=== PATIENT | female | born 1975 | race Caucasian/White ===

== ENCOUNTER → 2017-10-11 | Outpatient (CLI) | payer MEDICARE, MEDICAID ==
--- NOTE | 2017-10-11 16:42 | WOMENS IMAGING REPORT ---
EXAM DESCRIPTION: BILAT SCREENING MAMMO W/CAD COMPLETED DATE/TIME: 10/11/2017 3:53 pm REASON FOR STUDY: ROUTINE BILATERAL SCREENING;Z12.31 Z12.31 ENCNTR SCREEN MAMMOGRAM FOR MALIGNANT N EOPLASM OF TATUM COMPARISON: 2014 TECHNIQUE: Standard craniocaudal and mediolateral oblique views of each breast recorded using ICEXa l acquisition. LIMITATIONS: None. FINDINGS: No masses, calcifications or architectural distortion. No areas of suspicion. Read with the assistance of CAD. .[facility] - R2 C[employer]ova Version 1.3 .[facility] - R2 Cenova Version 1.3 .[facility] - R2 Cenova Version 2.4 .[facility] [place] C[employer]ova Version 2.4 [facility] - R2 [employer] Equipment Repairer Version 9.2 IMPRESSION: NORMAL MAMMOGRAM. BIRADS 1. BREAST DENSITY: b. There are scattered areas of fibroglandular density. BIRAD: 1 NEGATIVE RECOMMENDATION: ROUTINE SCREENING COMMENT: The patient has been notified of the results by letter per SA requirements. Additional no tification policies are in place for contacting patient with suspicious or incomplete findings. Quality ID #[id number]: The [employer] recommends an annual screening mammogram for women aged 40 years or over. This facility utilizes a reminder system to ensure that all patients receive reminder letters, and/or direct phone calls for appointments. This includes reminders for routine scr eening mammograms, diagnostic mammograms, or other Breast Imaging Interventions when appropriate. Th is patient will be placed in the appropriate reminder system. The [employer] (ACR) has developed recommendations for screening MRI of the breast s in certain patient populations, to be used in conjunction with mammography. Breast MRI surveillanc e may be appropriate for women with more than 20% lifetime risk of developing breast cancer as deter mined by genetic testing, significant family history of the disease, or history of mantle radiation f or Hodgkins Disease. ACR Practice Guidelines 2008. TECHNICAL DOCUMENTATION: FINDING NUMBER: (1) ASSESSMENT: (1) JOB ID: [id number] [employer]- All Rights Reserved Reading location - IP/workstation name: [email or web address]
== END ==
LOC: WI 15:36
PROVIDERS: ATTEND Physician Assistant
DX: Z12.31 Encounter for screening mammogram for malignant neoplasm of breast (principal)
CPT/HCPCS: 77067

== ENCOUNTER 2017-12-16 10:05 | Day surgery (SDC) | payer MEDICARE, MEDICAID ==
[~2017-12-16 10:05] MED LIST: BUPIVACAINE HCL 0.5%/EPI 1:200000 INJ 1.8 ML CARTRIDGE ONE; GLYCOPYRROLATE 1 MG/5 ML SYRINGE ONE; LIDOCAINE 2% INJ-PF (20 MG/ML) 2 ML AMPUL ONE; LIDOCAINE 2%/EPINEPHRINE INJ 1.7 ML CARTRIDGE ONE; SUCCINYLCHOLINE CHLORIDE INJ 200 MG/10 ML VIAL ONE
[2017-12-16] MEDS ORDERED: MIDAZOLAM 2 MG/2 ML INJ ONE (11:07)
[2017-12-16] MEDS ORDERED: DEXMEDETOMIDINE INJ 80 MCG/20 ML VIAL IV ONE (11:07)
[2017-12-16] MEDS ORDERED: FENTANYL CITRATE INJ/PF 100 MCG/2 ML AMPUL ONE ×2 (11:07→14:10)
[2017-12-16] MEDS ORDERED: PROPOFOL INJ 200 MG/20 ML VIAL IV ONE (11:08)
[2017-12-16] MEDS ORDERED: OXYMETAZOLINE HCL 0.05% NASAL SPRAY 15 ML BOTTLE ONE (11:23)
[2017-12-16 11:48] LABS: POTASSIUM 4.3 mmol/L (3.6-5.0)
[2017-12-16] MEDS ORDERED: METHYLPREDNISOLONE INJ 125 MG/2 ML SDV ONE (12:06)
[2017-12-16 12:10] LABS: ANION GAP 12 (5-19); BLOOD UREA NITROGEN 11 mg/dL (7-20); CALCIUM 9.6 mg/dL (8.4-10.2); CARBON DIOXIDE 25 mmol/L (22-30); CHLORIDE 100 mmol/L (98-107); GLUCOSE 125 mg/dL (75-110); SODIUM 137.1 mmol/L (137-145)
[2017-12-16 12:20] LABS: HEMATOCRIT 36.4 % (36.0-47.0); MEAN CORPUSCULAR HEMOGLOBIN 26.8 pg (27.0-33.4); MEAN CORPUSCULAR VOLUME 81 fl (80-97); PLATELET COUNT 314 10^3/uL (150-450); RED BLOOD COUNT 4.48 10^6/uL (3.72-5.28); WHITE BLOOD COUNT 15.2 10^3/uL (4.0-10.5)
[2017-12-16] MEDS ORDERED: AMPICILLIN SOD INJ 1 GM VIAL ONE (12:25)
[2017-12-16] MEDS ORDERED: FENTANYL CITRATE INJ/PF 100 MCG/2 ML AMPUL IV PRN ×3 (13:13)
--- NOTE | 2017-12-16 15:11 | Operative Report ---
Operative Report DATE OF SURGERY: 12/16/17 PREOPERATIVE DIAGNOSIS: Dental caries, impacted wisdom tooth #17 and bilateral mandibular marcia POSTOPERATIVE DIAGNOSIS: Same OPERATION: Surgical removal of teeth numbers 3 through 13 and 17 through 31 with alveoloplasties of all 4 quadrants and removal of bilateral mandibular marcia SURGEON: JULIO CESAR LR ANESTHESIA: GA TISSUE REMOVED OR ALTERED: Teeth and bone which were discarded COMPLICATIONS: None ESTIMATED BLOOD LOSS: 25 mL INTRAOPERATIVE FINDINGS: Grossly decayed teeth, full bony impacted tooth #17 and bilateral mandibular marcia PROCEDURE: The patient was brought into operating room #4 and placed on the operating room table in supine position. General anesthesia was induced via a peripheral IV and continued utilizing nasoendotracheal intubation. The patient was then prepped and draped in the usual fashion for an intraoral procedure. A total of 5 carpules of 2% Lidocaine with 1:100K Epi and 2 carpules of 0.5% Marcaine with 1:200K Epi were delivered to the planned surgical sites via both infiltration and nerve block. The oral cavity and oropharynx were suctioned and a moistened oropharyngeal throat pack was placed. A bite block was used throughout the procedure. Full thickness mucoperisteal flaps were elevated. A buccal hockey stick incision was used on the impacted wisdom tooth lower left. Tooth #17 was sectioned. Ostectomy was completed as needed. Teeth were delivered with elevators and forceps. Alveoloplasties were completed using rongeurs and bone files. The mandibular marcia were removed by making a trough with a 701 bur on a rotating osteotome and using a mallet and chisel to remove the marcia. All sites debrided and irrigated. No sinus exposure noted. Mandible intact post op. SAROJ not visualized. Wounds reapproximated and sutured with 4-0 chromic gut. The oral cavity was suctioned and found to be free of debris. The throat pack was removed. The oropharynx was suctioned. Gauze packs were placed bilaterally to aid in continued hemastasis. The patient was awakened from general anesthesia, extubated in the operating room and taken to recovery in spontaneous breathing fashion.
[2017-12-16] MEDS ORDERED: OXYCODONE-ACETAMINOPHEN 5-325 MG TABLET ONE (15:19)
[2017-12-16] MEDS ORDERED: OXYCODONE-ACETAMINOPHEN 5-325 MG TABLET PO PRN (15:22)
[2017-12-16] MEDS ORDERED: ATROPINE SULFATE INJ 1 MG/10 ML DISP.SYRIN IV ONE (15:23)
[2017-12-16 16:33] VITALS: BP 139/92
== END 2017-12-16 16:05 | disposition home or self-care (01) ==
LOC: OROUT 10:05
PROVIDERS: ATTEND Dentist Oral and Maxillofacial Surgery
DX: K02.9 Dental caries, unspecified (principal); K01.1 Impacted teeth; M27.0 Developmental disorders of jaws; Z79.01 Long term (current) use of anticoagulants; M06.9 Rheumatoid arthritis, unspecified; G40.909 Epilepsy, unspecified, not intractable, without status epilepticus; G43.909 Migraine, unspecified, not intractable, without status migrainosus; Z88.2 Allergy status to sulfonamides; Z88.8 Allergy status to other drugs, medicaments and biological substances; I10 Essential (primary) hypertension; R73.03 Prediabetes
CPT/HCPCS: 41874 ×4; 41899; 36415; 85027; 80048; 21031; J0290; J2250; J0461; J3490 ×4; J3010; J2930; A9270; J0330; J2704; 170

== ENCOUNTER 2018-04-29 17:53 | Emergency (ER) | payer MEDICARE, MEDICAID ==
--- NOTE | 2018-04-29 18:23 | ER Document Report ---
ED Medical Screen (RME) - General Chief Complaint: Skin Problem Stated Complaint: LEFT LEG PAIN Time Seen by Provider: 04/29/18 18:20 Primary Care Provider: PLACIDO HUIZAR MD [Primary Care Provider] - Follow up as needed Notes: Patient is here with what appears to be an infected open lesion over the medial aspect of the left ankle. She says she has had this for about a month. She was admitted to the hospital in [place] in December and treated as an inpatient with IV antibiotics for MRSA. She believes she has MRSA again. Patient says she cannot take oral antibiotics to cover MRSA because it tears her stomach up. Patient has 2 cm vertical open lesion on the medial aspect of her left ankle. She has scars from previous lesions on the left lower leg. She does not have any other lesions elsewhere.. Patient took a picture of this lesion and sent it to her primary care provider who told her she needed to come to the emergency department. She is insistent that she needs to be treated as an inpatient for this condition. I advised her that I do not think she meets criteria for inpatient care without at least a trial of oral antibiotics. She is allergic to sulfa. She says that doxycycline and clindamycin tear her stomach up. I told her I will send her chart on through to another provider in the ED so that we get a second opinion. TRAVEL OUTSIDE OF THE [place] IN LAST 30 DAYS: No - Related Data Allergies/Adverse Reactions: diphenhydramine HCl [From Benadryl] Allergy (Severe, Verified 12/15/17 15:50) itching, anxiety Influenza Virus Vaccines Allergy (Severe, Verified 12/15/17 16:22) Anaphylaxis lorazepam [From Ativan] Allergy (Severe, Verified 12/15/17 15:50) Anaphylaxis prochlorperazine maleate [From Compazine] Allergy (Severe, Verified 12/15/17 15:50) Anxiety, itching Sulfa (Sulfonamide Antibiotics) Allergy (Severe, Verified 12/15/17 15:50) Hives ketorolac tromethamine [From Toradol] Adverse Reaction (Severe, Verified 12/15/17 15:50) Anxiety prochlorperazine edisylate [From Compazine] Adverse Reaction (Severe, Verified 12/15/17 15:50) Anxiety, itching Past Medical History - Social History Chew tobacco use (# tins/day): No Frequency of alcohol use: None Drug Abuse: None - Past Medical History Cardiac Medical History: Reports: Hx Hypercholesterolemia, Hx Hypertension - on meds Denies: Hx Coronary Artery Disease, Hx Heart Attack Pulmonary Medical History: Denies: Hx Asthma, Hx Bronchitis, Hx COPD, Hx Pneumonia Neurological Medical History: Reports: Hx Migraine, Hx Seizures - none x 4 yrs- no meds. Denies: Hx Cerebrovascular Accident Endocrine Medical History: Reports: Hx Diabetes Mellitus Type 2 - diet controlled Renal/ Medical History: Denies: Hx Peritoneal Dialysis Musculoskeltal Medical History: Reports Hx Arthritis - RA Psychiatric Medical History: Reports: Hx Depression Past Surgical History: Reports: Hx Appendectomy, Hx Cholecystectomy, Hx Gynecologic Surgery - laproscopic, Hx Tonsillectomy - Immunizations Hx Diphtheria, Pertussis, Tetanus Vaccination: Yes History of Influenza Vaccine for 11/2016 - 04/2017 Season: Yes Physical Exam - Vital signs Vitals: Temp Pulse Resp BP Pulse Ox 98.6 F 74 20 109/51 L 93 04/29/18 18:04 04/29/18 18:04 04/29/18 18:04 04/29/18 18:04 04/29/18 18:04 Course - Vital Signs Vital signs: Temp Pulse Resp BP Pulse Ox 98.6 F 74 20 109/51 L 93 04/29/18 18:04 04/29/18 18:04 04/29/18 18:04 04/29/18 18:04 04/29/18 18:04 Doctor's Discharge - Discharge Referrals: PLACIDO HUIZAR MD [Primary Care Provider] - Follow up as needed
[2018-04-29 19:07] LABS: ABSOLUTE BASOPHILS # (AUTO) 0.1 10^3/uL (0.0-0.2); ABSOLUTE EOSINOPHILS # (AUTO) 0.3 10^3/uL (0.0-0.6); ABSOLUTE LYMPHOCYTES (AUTO) 2.9 10^3/uL (0.5-4.7); ABSOLUTE MONOCYTES (AUTO) 0.4 10^3/uL (0.1-1.4); ABSOLUTE NEUT (AUTO) 2.7 10^3/uL (1.7-8.2); BASOPHILS % (AUTO) 1.4 % (0-2); EOSINOPHILS % (AUTO) 4.2 % (0-6); HEMATOCRIT 37.5 % (36.0-47.0); HEMOGLOBIN 12.6 g/dL (12.0-15.5); LYMPHOCYTES % (AUTO) 45.6 % (13-45); MEAN CORPUSCULAR HGB CONC 33.7 g/dL (32.0-36.0); MEAN CORPUSCULAR VOLUME 80 fl (80-97); MONOCYTES % (AUTO) 6.3 % (3-13); PLATELET COUNT 265 10^3/uL (150-450); RED BLOOD COUNT 4.68 10^6/uL (3.72-5.28); RED CELL DISTRIBUTION WIDTH 13.8 % (11.5-14.0); SEGMENTED NEUTROPHILS % (AUTO) 42.5 % (42-78); TOTAL CELLS COUNTED % (AUTO) 100 %; WHITE BLOOD COUNT 6.4 10^3/uL (4.0-10.5)
[2018-04-29 19:18] LABS: ALANINE AMINOTRANSFERASE 32 U/L (9-52); ALBUMIN 4.4 g/dL (3.5-5.0); ALKALINE PHOSPHATASE 83 U/L (38-126); ANION GAP 11 (5-19); ASPARTATE AMINO TRANSFERASE 25 U/L (14-36); BILIRUBIN,DIRECT 0.2 mg/dL (0.0-0.4); BILIRUBIN,TOTAL 0.6 mg/dL (0.2-1.3); BLOOD UREA NITROGEN 14 mg/dL (7-20); CALCIUM 10.1 mg/dL (8.4-10.2); CARBON DIOXIDE 29 mmol/L (22-30); CHLORIDE 102 mmol/L (98-107); GLUCOSE 122 mg/dL (75-110); POTASSIUM 3.9 mmol/L (3.6-5.0); SODIUM 142.3 mmol/L (137-145); TOTAL PROTEIN 6.8 g/dL (6.3-8.2)
--- NOTE | 2018-04-29 22:02 | ER Document Report ---
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 History is actually somewhat difficult to obtain from the patient as she continuously falls asleep in the middle of conversations. The patient is on chronic pain management taking extended release morphine as well as oxycodone. I did confront the patient regarding this and she does state that this is a normal thing for her as does her mother at the bedside state that they are concerned that she is being overmedicated in terms of narcotics. The patient denies any fever or constitutional symptoms. She states that nothing is new or different regarding the wound today except that it was more painful than normal. She states that this has been managed through her veneer taper, primary care doctor and she has been hospitalized in the past for IV antibiotics without any significant improvement. The pain to the area described as a stabbing, aching, constant pain. This area walking seems to worsen the pain. Her chronic pain medications are not improving the pain. TRAVEL OUTSIDE OF THE [place] IN LAST 30 DAYS: No - Related Data Allergies/Adverse Reactions: diphenhydramine HCl [From Benadryl] Allergy (Severe, Verified 12/15/17 15:50) itching, anxiety Influenza Virus Vaccines Allergy (Severe, Verified 12/15/17 16:22) Anaphylaxis lorazepam [From Ativan] Allergy (Severe, Verified 12/15/17 15:50) Anaphylaxis prochlorperazine maleate [From Compazine] Allergy (Severe, Verified 12/15/17 15:50) Anxiety, itching Sulfa (Sulfonamide Antibiotics) Allergy (Severe, Verified 12/15/17 15:50) Hives ketorolac tromethamine [From Toradol] Adverse Reaction (Severe, Verified 12/15/17 15:50) Anxiety prochlorperazine edisylate [From Compazine] Adverse Reaction (Severe, Verified 12/15/17 15:50) Anxiety, itching Past Medical History - General Information source: Patient - Social History Smoking Status: Current Every Day Smoker Chew tobacco use (# tins/day): No Frequency of alcohol use: None Drug Abuse: None Lives with: Parents Family History: Reviewed & Not Pertinent Patient has suicidal ideation: No Patient has homicidal ideation: No - Past Medical History Cardiac Medical History: Reports: Hx Hypercholesterolemia, Hx Hypertension - on meds Denies: Hx Coronary Artery Disease, Hx Heart Attack Pulmonary Medical History: Denies: Hx Asthma, Hx Bronchitis, Hx COPD, Hx Pneumonia Neurological Medical History: Reports: Hx Migraine, Hx Seizures - none x 4 yrs- no meds. Denies: Hx Cerebrovascular Accident Endocrine Medical History: Reports: Hx Diabetes Mellitus Type 2 - diet controlled Renal/ Medical History: Denies: Hx Peritoneal Dialysis Musculoskeletal Medical History: Reports Hx Arthritis - RA Psychiatric Medical History: Reports: Hx Depression Past Surgical History: Reports: Hx Appendectomy, Hx Cholecystectomy, Hx Gynecologic Surgery - laproscopic, Hx Tonsillectomy - Immunizations Hx Diphtheria, Pertussis, Tetanus Vaccination: Yes Review of Systems - Review of Systems Notes: Constitutional: Negative for fever. HENT: Negative for sore throat. Eyes: Negative for visual changes. Cardiovascular: Negative for chest pain. Respiratory: Negative for shortness of breath. Gastrointestinal: Negative for abdominal pain, vomiting or diarrhea. Genitourinary: Negative for dysuria. Musculoskeletal: Positive for chronic low back pain Skin: Positive for chronic ulcer to the left medial ankle Neurological: Negative for headaches, weakness or numbness. 10 point ROS negative except as marked above and in HPI. Physical Exam - Vital signs Vitals: Temp Pulse Resp BP Pulse Ox 98.6 F 74 20 109/51 L 93 04/29/18 18:04 04/29/18 18:04 04/29/18 18:04 04/29/18 18:04 04/29/18 18:04 Interpretation: Normal Notes: PHYSICAL EXAMINATION: GENERAL: Somewhat sedated, wakes easily to voice. No distress. HEAD: Atraumatic, normocephalic. EYES: Pupils equal round and reactive to light, extraocular movements intact, sclera anicteric, conjunctiva are normal. ENT: nares patent, oropharynx clear without exudates. Moderately dry mucous membranes. NECK: Normal range of motion, supple without lymphadenopathy LUNGS: Breath sounds clear to auscultation bilaterally and equal. No wheezes rales or rhonchi. HEART: Regular rate and rhythm without murmurs ABDOMEN: Soft, nontender, normoactive bowel sounds. No guarding, no rebound. No masses appreciated. EXTREMITIES: Normal range of motion, no pitting or edema. No cyanosis. NEUROLOGICAL: No focal neurological deficits. Moves all extremities spontaneously and on command. PSYCH: Normal mood, normal affect. SKIN: Warm, Dry, normal turgor, 1 x 0.5 cm ulceration to the medial right ankle without evidence of induration, erythema, purulent drainage or malodor Course - Re-evaluation Re-evalutation: 04/29/18 22:01 Patient presents with a chronic wound to the left medial ankle overlying the medial malleolus that does not appear to be infected or have any underlying fluid collection. Patient has no fever, constitutional symptoms or leukocytosis. Wound is chronic, unchanged today. States that she is in severe pain although struggles to maintain consciousness secondary to the degree of narcotics that she is receiving on a chronic basis. I had an extended conversation with the patient and her mother about my concerns that she is being overmedicated and have encouraged him to speak with pain management regarding her level of sedation on prescribed medications. I do not believe the patient requires antibiotics or hospitalization at this time. At this time will discharge with return precautions and follow-up recommendations. Verbal discha rge instructions given a the bedside and opportunity for questions given. Medication warnings reviewed. Patient is in agreement with this plan and has verbalized understanding of return precautions and the need for primary care follow-up in the next 24-72 hours. - Vital Signs Vital signs: Temp Pulse Resp BP Pulse Ox 98.6 F 74 20 109/51 L 93 04/29/18 18:04 04/29/18 18:04 04/29/18 18:04 04/29/18 18:04 04/29/18 18:04 - Laboratory Result Diagrams: 04/29/18 18:42 04/29/18 18:42 Laboratory results interpreted by me: 04/29/18 04/29/18 18:42 18:42 Lymphocytes % 45.6 H Est GFR (Non-Af Amer) 57 L Glucose 122 H Discharge - Discharge Clinical Impression: Behcet's disease Chronic ulcer of left ankle Qualifiers: Non-pressure ulcer stage: limited to breakdown of skin Qualified Code(s): L97.321 - Non-pressure chronic ulcer of left ankle limited to breakdown of skin Condition: Good Disposition: HOME, SELF-CARE Additional Instructions: Please follow-up with your primary care physician and veneer taper regarding chronic ulceration on your left ankle. As we discussed I would also strongly encouraged to follow-up with your paint brush maker regarding her degree of sedation on your chronic pain meds. Return if you develop a fever greater than 101 F, persistent vomiting, worsening of the pain, spreading redness from the area, drainage from the wound or any other symptoms that are worrisome to you. Referrals: PLACIDO HUIZAR MD [Primary Care Provider] - Follow up as needed
[2018-04-29 22:17] VITALS: BP 108/71
== END 2018-04-29 22:17 | disposition home or self-care (01) ==
LOC: ER 17:53
DX: M35.2 Behcet's disease (principal); L97.321 Non-pressure chronic ulcer of left ankle limited to breakdown of skin; M79.605 Pain in left leg; M54.5 Low back pain; G89.29 Other chronic pain; Z79.899 Other long term (current) drug therapy; F17.200 Nicotine dependence, unspecified, uncomplicated; I10 Essential (primary) hypertension; E11.9 Type 2 diabetes mellitus without complications
CPT/HCPCS: 36415; 80053; 85025; 87040; 99283

== ENCOUNTER → 2019-03-10 | Outpatient (CLI) | payer MEDICARE, MEDICAID ==
--- NOTE | 2019-03-10 09:08 | WOMENS IMAGING REPORT ---
EXAM DESCRIPTION: 3D SCREENING MAMMO BILAT COMPLETED DATE/TIME: 03/10/2019 8:32 am REASON FOR STUDY: Z12.31 SCREENING MAMMO Z12.31 ENCNTR SCREEN MAMMOGRAM FOR MALIGNANT NEOPLASM OF B RE COMPARISON: 2014, 2017 EXAM PARAMETERS: Views: Standard craniocaudal and mediolateral oblique views of each breast recorded using digital acquisition and breast tomosynthesis. Read with the assistance of CAD. .[facility] - [employer]i Coordinator Version 9.2 LIMITATIONS: None. FINDINGS: No suspicious masses, suspicious calcifications or architectural distortion. No areas of c oncern. IMPRESSION: NEGATIVE MAMMOGRAM. BIRADS 1. BREAST DENSITY: b. There are scattered areas of fibroglandular density. BIRAD: ASSESSMENT: 1 NEGATIVE RECOMMENDATION: ROUTINE SCREENING COMMENT: The patient has been notified of the results by letter per MQSA requirements. Additional no tification policies are in place for contacting patient with suspicious or incomplete findings. Quality ID #[id number]: The [employer] recommends an annual screening mammogram for women aged 40 years or over. This facility utilizes a reminder system to ensure that all patients receive reminder letters, and/or direct phone calls for appointments. This includes reminders for routine scr eening mammograms, diagnostic mammograms, or other Breast Imaging Interventions when appropriate. Th is patient will be placed in the appropriate reminder system. TECHNICAL DOCUMENTATION: FINDING NUMBER: (1) ASSESSMENT: (1) JOB ID: [id number] [employer]- All Rights Reserved Reading location - IP/workstation name: [email or web address]
== END ==
LOC: WI 08:10
PROVIDERS: ATTEND Internal Medicine
DX: Z12.31 Encounter for screening mammogram for malignant neoplasm of breast (principal)
CPT/HCPCS: 77063; 77067

== ENCOUNTER 2019-04-26 17:46 | Emergency (ER) | payer MEDICARE, MEDICAID ==
--- NOTE | 2019-04-26 18:20 | EKG REPORT ---
SEVERITY:- NORMAL ECG - SINUS RHYTHM : Confirmed by: Radha De La Cruz MD 26-Apr-2019 18:19:55
--- NOTE | 2019-04-26 20:44 | ER Document Report ---
ED Medical Screen (RME) - General Chief Complaint: Cough Stated Complaint: CHEST TIGHTNESS,SHORT OF BREATH Time Seen by Provider: 04/26/19 20:33 Primary Care Provider: PLACIDO HUIZAR MD [Primary Care Provider] - Follow up as needed Notes: HPI: 43-year-old female presenting to the emergency department for evaluation of multiple complaints. Patient states that she had gotten up 2 weeks ago walked across her house and then had a syncopal episode with fluttering in the chest. Patient is continued to have intermittent fluttering in the chest. Patient states that she has had continued headaches and lightheadedness after the head injury, states she had a large knot on the right side of her head. States her tetanus is up-to-date. Patient states over the last 4 days she has developed worsening cough with shortness of breath and a sensation of "smothering" at times. Did not see her PCP for evaluation of symptoms. Patient states that she is on multiple medications for blood pressure and has had a history of tachycardia in the past I have greeted and performed a rapid initial assessment of this patient. A comprehensive ED assessment and evaluation of the patient, analysis of test results and completion of the medical decision making process will be conducted by additional ED providers PHYSICAL EXAMINATION: GENERAL: Well-appearing, well-nourished and in mild acute distress. HEAD: Hematoma with abrasion to the right parietal scalp is noted, normocephalic. EYES: sclera anicteric, conjunctiva are normal. ENT: Moist mucous membranes. NECK: Normal range of motion LUNGS: Normal work of breathing, clear to auscultation HEART: 2+ radial pulses bilaterally, regular rate and rhythm ABD: limited by positioning for exam in triage. EXTREMITIES: no pitting or edema. No cyanosis. NEUROLOGICAL: No focal neurological deficits. Moves all extremities spontaneously and on command. PSYCH: Normal mood, normal affect. SKIN: Warm, Dry, normal turgor, no rashes or lesions noted. TRAVEL OUTSIDE OF THE [place] IN LAST 30 DAYS: No - Related Data Allergies/Adverse Reactions: diphenhydramine HCl [From Benadryl] Allergy (Severe, Verified 12/15/17 15:50) itching, anxiety Influenza Virus Vaccines Allergy (Severe, Verified 12/15/17 16:22) Anaphylaxis lorazepam [From Ativan] Allergy (Severe, Verified 12/15/17 15:50) Anaphylaxis prochlorperazine maleate [From Compazine] Allergy (Severe, Verified 12/15/17 15:50) Anxiety, itching Sulfa (Sulfonamide Antibiotics) Allergy (Severe, Verified 12/15/17 15:50) Hives ketorolac tromethamine [From Toradol] Adverse Reaction (Severe, Verified 12/15/17 15:50) Anxiety prochlorperazine edisylate [From Compazine] Adverse Reaction (Severe, Verified 12/15/17 15:50) Anxiety, itching Past Medical History - Past Medical History Cardiac Medical History: Reports: Hx Hypercholesterolemia, Hx Hypertension - on meds Denies: Hx Coronary Artery Disease, Hx Heart Attack Pulmonary Medical History: Denies: Hx Asthma, Hx Bronchitis, Hx COPD, Hx Pneumonia Neurological Medical History: Reports: Hx Migraine, Hx Seizures - none x 4 yrs- no meds. Denies: Hx Cerebrovascular Accident Endocrine Medical History: Reports: Hx Diabetes Mellitus Type 2 - diet con trolled Renal/ Medical History: Denies: Hx Peritoneal Dialysis Musculoskeltal Medical History: Reports Hx Arthritis - RA Psychiatric Medical History: Reports: Hx Depression Past Surgical History: Reports: Hx Appendectomy, Hx Cholecystectomy, Hx Gynecologic Surgery - laproscopic, Hx Tonsillectomy - Immunizations Hx Diphtheria, Pertussis, Tetanus Vaccination: Yes Physical Exam - Vital signs Vitals: Temp Pulse Resp BP Pulse Ox 99.1 F 58 L 16 173/93 H 96 04/26/19 18:05 04/26/19 18:05 04/26/19 18:05 04/26/19 18:05 04/26/19 18:05 Course - Vital Signs Vital signs: Temp Pulse Resp BP Pulse Ox 99.1 F 58 L 16 176/96 H 96 04/26/19 18:05 04/26/19 18:05 04/26/19 18:05 04/26/19 18:14 04/26/19 18:05 Doctor's Discharge - Discharge Referrals: PLACIDO HUIZAR MD [Primary Care Provider] - Follow up as needed
--- NOTE | 2019-04-26 21:21 | RADIOLOGY REPORT (SQ) ---
EXAM DESCRIPTION: XR CHEST 2 VIEWS COMPLETED DATE/TME: 04/26/2019 20:40 CLINICAL HISTORY: 43 years, Female, cough COMPARISON: None. NUMBER OF VIEWS: Two TECHNIQUE: Frontal and lateral radiograph are obtained LIMITATIONS: None. FINDINGS: Cardiac and mediastinal contours are normal. Lungs are clear. No pleural effusion or pneumothorax. IMPRESSION: No acute disease. copyright 2010 [employer]- All Rights Reserved
--- NOTE | 2019-04-26 21:27 | RADIOLOGY REPORT (SQ) ---
EXAM DESCRIPTION: Noncontrast CT head CLINICAL HISTORY: 43 years Female head injury TECHNIQUE: Noncontrast CT head. All CT scans at this facility use dose modulation, iterative reconstruction, and/or weight based dosing when appropriate to reduce radiation dose to as low as reasonably achievable. COMPARISON: None. FINDINGS: Granados matter, white matter, ventricles, and cisterns are within normal limits. No acute hemorrhage or mass effect. Visualized portions of paranasal sinuses and mastoids are clear. Visualized portions of the calvarium are within normal limits. IMPRESSION: 1. No acute intracranial findings. If there is clinical concern for acute stroke, consider MRI brain as a more sensitive evaluation.
[2019-04-26 21:41] LABS: ABSOLUTE BASOPHILS # (AUTO) 0.1 10^3/uL (0.0-0.2); ABSOLUTE EOSINOPHILS # (AUTO) 0.5 10^3/uL (0.0-0.6); ABSOLUTE LYMPHOCYTES (AUTO) 1.8 10^3/uL (0.5-4.7); ABSOLUTE MONOCYTES (AUTO) 0.4 10^3/uL (0.1-1.4); ABSOLUTE NEUT (AUTO) 4.2 10^3/uL (1.7-8.2); BASOPHILS % (AUTO) 1.2 % (0-2); EOSINOPHILS % (AUTO) 7.6 % (0-6); HEMATOCRIT 39.1 % (36.0-47.0); HEMOGLOBIN 13.4 g/dL (12.0-15.5); LYMPHOCYTES % (AUTO) 25.5 % (13-45); MEAN CORPUSCULAR HEMOGLOBIN 29.6 pg (27.0-33.4); MEAN CORPUSCULAR HGB CONC 34.3 g/dL (32.0-36.0); MEAN CORPUSCULAR VOLUME 86 fl (80-97); MONOCYTES % (AUTO) 5.3 % (3-13); PLATELET COUNT 276 10^3/uL (150-450); RED BLOOD COUNT 4.53 10^6/uL (3.72-5.28); RED CELL DISTRIBUTION WIDTH 14.8 % (11.5-14.0); SEGMENTED NEUTROPHILS % (AUTO) 60.4 % (42-78); TOTAL CELLS COUNTED % (AUTO) 100 %; WHITE BLOOD COUNT 6.9 10^3/uL (4.0-10.5)
[2019-04-26 21:58] LABS: ALBUMIN 4.5 g/dL (3.5-5.0); ALKALINE PHOSPHATASE 98 U/L (38-126); ANION GAP 10 (5-19); ASPARTATE AMINO TRANSFERASE 22 U/L (14-36); BILIRUBIN,DIRECT 0.3 mg/dL (0.0-0.4); BILIRUBIN,TOTAL 0.4 mg/dL (0.2-1.3); BLOOD UREA NITROGEN 10 mg/dL (7-20); CALCIUM 9.7 mg/dL (8.4-10.2); CARBON DIOXIDE 26 mmol/L (22-30); CHLORIDE 102 mmol/L (98-107); GLUCOSE 99 mg/dL (75-110); POTASSIUM 4.6 mmol/L (3.6-5.0); TOTAL PROTEIN 7.5 g/dL (6.3-8.2)
[2019-04-26 22:11] LABS: NT PRO BNP 262 pg/mL (<125)
[2019-04-26 22:12] LABS: TROPONIN I < 0.012 ng/mL
[2019-04-26 22:25] LABS: A TYPE INFLUENZA AG NEGATIVE (NEGATIVE); B INFLUENZA AG NEGATIVE (NEGATIVE)
[2019-04-27] MEDS ORDERED: IPRATROPIUM/ALBUTEROL 0.5-2.5 MG/3 ML AMPUL NEB ONE (01:54)
[2019-04-27] MEDS ORDERED: METHYLPREDNISOLONE INJ 125 MG/2 ML SDV IV ONE (01:55)
[2019-04-27] MEDS ORDERED: NORMAL SALINE 500 ML IV ONE (01:56)
--- NOTE | 2019-04-27 01:58 | ER Document Report ---
ED General - General Chief Complaint: Cough Stated Complaint: CHEST TIGHTNESS,SHORT OF BREATH Time Seen by Provider: 04/26/19 20:33 Primary Care Provider: PLACIDO HUIZAR MD [Primary Care Provider] - Follow up as needed TRAVEL OUTSIDE OF THE [place] IN LAST 30 DAYS: No - HPI Notes: 43-year-old female with 4-day history of flulike illness including temperature intermittently to 101, headache, myalgias, nasal congestion, sore throat, nonproductive cough and dyspnea on exertion. No vomiting. No diarrhea. - Related Data Allergies/Adverse Reactions: diphenhydramine HCl [From Benadryl] Allergy (Severe, Verified 12/15/17 15:50) itching, anxiety Influenza Virus Vaccines Allergy (Severe, Verified 12/15/17 16:22) Anaphylaxis lorazepam [From Ativan] Allergy (Severe, Verified 12/15/17 15:50) Anaphylaxis prochlorperazine maleate [From Compazine] Allergy (Severe, Verified 12/15/17 15:50) Anxiety, itching Sulfa (Sulfonamide Antibiotics) Allergy (Severe, Verified 12/15/17 15:50) Hives ketorolac tromethamine [From Toradol] Adverse Reaction (Severe, Verified 12/15/17 15:50) Anxiety prochlorperazine edisylate [From Compazine] Adverse Reaction (Severe, Verified 12/15/17 15:50) Anxiety, itching Past Medical History - General Information source: Patient - Social History Smoking Status: Current Every Day Smoker Family History: Reviewed & Not Pertinent Patient has suicidal ideation: No Patient has homicidal ideation: No - Past Medical History Cardiac Medical History: Reports: Hx Hypercholesterolemia, Hx Hypertension - on meds Denies: Hx Coronary Artery Disease, Hx Heart Attack Pulmonary Medical History: Denies: Hx Asthma, Hx Bronchitis, Hx COPD, Hx Pneumonia Neurological Medical History: Reports: Hx Migraine, Hx Seizures - none x 4 yrs- no meds. Denies: Hx Cerebrovascular Accident Endocrine Medical History: Reports: Hx Diabetes Mellitus Type 2 - diet controlled Renal/ Medical History: Denies: Hx Peritoneal Dialysis Musculoskeletal Medical History: Reports Hx Arthritis - RA Psychiatric Medical History: Reports: Hx Depression Past Surgical History: Reports: Hx Appendectomy, Hx Cholecystectomy, Hx Gynecologic Surgery - laproscopic, Hx Tonsillectomy - Immunizations Hx Diphtheria, Pertussis, Tetanus Vaccination: Yes Review of Systems - Review of Systems Notes: Constitutional: As per HPI. HENT: As per HPI. Eyes: Negative for visual changes. Cardiovascular: Negative for chest pain. Respiratory: As per HPI. Gastrointestinal: Negative for abdominal pain, vomiting or diarrhea. Genitourinary: Negative for dysuria. Musculoskeletal: Diffuse myalgias. Skin: Negative for rash. Neurological: Dull headache no focal weakness or numbness. 10 point ROS negative except as marked above and in HPI. Physical Exam - Vital signs Vitals: Temp Pulse Resp BP Pulse Ox 99.1 F 58 L 16 173/93 H 96 04/26/19 18:05 04/26/19 18:05 04/26/19 18:05 04/26/19 18:05 04/26/19 18:05 - Notes Notes: GENERAL: Moderately obese middle-age female who appears uncomfortable. SKIN: Good turgor no rashes. HEAD: Normocephalic atraumatic. Diffuse sinus tenderness to percussion. EYES: PERRLA. EOMI. Conjunctivae and sclerae clear. EARS: CANALS AND TMS CLEAR. NOSE: CLEAR drainage bilaterally. MOUTH: Moist mucosa. Good dentition. No stridor or edema. No drooling. NECK: Supple. No masses or thyromegaly. No adenopathy. Carotids 2+ without bruits. No JVD. BACK: Symmetrical without tenderness. CHEST: Respirations unlabored. Diffuse expiratory wheezes and scattered rhonchi bilaterally. HEART: Regular rhythm. No murmur gallop or rub. ABDOMEN: Soft nontender without masses, organomegaly or rebound. Bowel sounds normally active. No bruits. GENITALIA: Deferred. EXTREMITIES: No edema. No calf tenderness. Cap refill less than 1.5 seconds. Dorsalis pedis and posterior tibial pulses 3+ and symmetrical. NEUROLOGICAL: GCS 15. Alert and oriented x3. Fluent speech. Cranial nerves II through XII intact. Sensorimotor and cerebellar normal. Normal tone. PSYCHIATRIC: Appropriate affect. Course - Re-evaluation Re-evalutation: 04/27/19 02:02 Influenza a and B screen are negative. Clinically she has a sinusitis and bronchitis and she is a heavy cigarette smoker. I am going to hydrate her with normal saline. I given her some oral Tylenol. She will receive IV Solu-Medrol and DuoNeb treatments. Of strongly encouraged her to stop smoking and anticipate outpatient management. 04/27/19 04:49 Much better at this time with just a few residual wheezes on auscultation. She is smiling and happy and ready to go home. - Vital Signs Vital signs: Temp Pulse Resp BP Pulse Ox 99.1 F 58 L 10 L 159/87 H 98 04/26/19 18:05 04/26/19 18:05 04/27/19 01:39 04/27/19 01:39 04/27/19 01:39 04/27/19 02:02 Influenza a and B screen are negative. - Laboratory Result Diagrams: 04/26/19 21:20 04/26/19 21:20 Laboratory results interpreted by me: 04/26/19 04/26/19 21:20 21:20 RDW 14.8 H Eos % (Auto) 7.6 H NT-Pro-B Natriuret Pep 262 H - Diagnostic Test Radiology reviewed: Reports reviewed - Chest x-ray shows no active disease per radiologist. Head CT noncontrast shows no acute changes per radiologist. Discharge - Discharge Clinical Impression: Acute bronchitis Qualifiers: Bronchitis organism: unspecified organism Qualified Code(s): J20.9 - Acute bronchitis, unspecified Condition: Stable Disposition: HOME, SELF-CARE Additional Instructions: Bronchitis You have acute bronchitis. This disease is an infection or inflammation of the air passageways in your lungs. Symptoms usually include cough, low grade fever, shortness of breath, and wheezing. The cough usually persists for a couple of weeks. Most cases of bronchitis get better without antibiotics. We prescribe antibiotics when we believe bacteria are damaging your airways, or if there's high risk the bronchitis will worsen into pneumonia. Increase your fluid intake. A cool mist humidifier may make your lungs more comfortable. An expectorant (cough medicine that loosens phlegm) can help. If you smoke, STOP!!! Recovery from bronchitis can be somewhat slow, but you should see improvement within a day or two. Repeated episodes of bronchitis may result in lung damage -- for example, chronic bronchitis, recurrent pneumonias, or emphysema. Call the doctor if you develop increasing fever, shortness of breath, chest pain, bloody sputum, or otherwise worsen. If you have not improved at all after several days, contact the physician. Stop smoking. Take prescribed medications as directed. Increase oral fluids. Follow-up with your primary care physician this week. Prescriptions: Prednisone [Deltasone 20 mg Tablet] 2 tab PO DAILY 5 Days tablet Nicotine [Nicoderm 21 mg/24 Hr Transderm Patch] 1 patch TD DAILY #30 patch.[id number] Albuterol Sulfate [Proair HFA Inhalation Aerosol 8.5 gm MDI] 2 puff IH Q4H PRN #1 mdi PRN Reason: Azithromycin [Zithromax 250 mg Tablet] 250 mg PO ASDIR PRN #6 tablet PRN Reason: Forms: Smoking Cessation Education Referrals: PLACIDO HUIZAR MD [Primary Care Provider] - Follow up as needed
[2019-04-27 05:01] VITALS: BP 169/79
== END 2019-04-27 05:08 | disposition home or self-care (01) ==
LOC: ER 17:46
DX: J20.9 Acute bronchitis, unspecified (principal); R05 Cough; R07.9 Chest pain, unspecified; R06.02 Shortness of breath; R50.9 Fever, unspecified; M79.10 Myalgia, unspecified site; R51 Headache; R09.81 Nasal congestion; J02.9 Acute pharyngitis, unspecified; R06.00 Dyspnea, unspecified; Z88.8 Allergy status to other drugs, medicaments and biological substances; Z88.2 Allergy status to sulfonamides; F17.200 Nicotine dependence, unspecified, uncomplicated; I10 Essential (primary) hypertension; Z79.899 Other long term (current) drug therapy; E11.9 Type 2 diabetes mellitus without complications
CPT/HCPCS: 93005; 94640; 99284; 96361; 96374; 36415; 85025; 80053; 84484; 87804; 83880; 71046; 70450; 93010; J2930; J7040; A9270; J7620